=== PATIENT | male | born 1945 | race Caucasian/White ===

== ENCOUNTER → 2016-03-05 | Outpatient (CLI) | payer OTHER ==
[~2016-03-05] MED LIST: CLC100 PO; IBUP-1450 PO; OPTIRAY 320 IV PRN; OXYC5TAB PO; PRAV20TA PO; TAMS0.4C59 PO
--- NOTE | 2016-03-05 12:10 | DIAGNOSTIC IMAGING REPORT ---
CHEST CT WITH CONTRAST CT DOSE: 772.10 mGy.cm HISTORY: Pulmonary nodule X TECHNIQUE: Multiaxial CT images of the chest were performed following the intravenous administration of contrast. COMPARISON: 10/11/2015 FINDINGS: Interval removal of the peripherally located nodular density left midlung. Minimal postprocedural scar formation. No significant residual nodularity. Lungs otherwise clear. There are no new or interval findings of that noted. Mediastinal hilar regions show no significant adenopathy or in some mild atherosclerotic change thoracic aorta with no evidence for aneurysm or dissection. IMPRESSION: 1. Interval resection and/or removal of the nodular density peripheral left lung. 2. Minimal localized postprocedural scarring. 3. Study of the chest is currently negative Electronically signed by: James Reveles M.D. 03/05/2016 12:08 PM
== END | disposition home or self-care (01) ==
LOC: C.CTS 11:20
PROVIDERS: ATTEND Surgery
DX: R91.1 Solitary pulmonary nodule (principal)

== ENCOUNTER → 2016-05-14 | Outpatient (CLI) | payer OTHER ==
[~2016-05-14] VITALS: Ht 182.9 cm; Wt 90.0 kg
[~2016-05-14] MED LIST changes: -OPTIRAY 320 IV PRN
[2016-05-14 14:00] VITALS: BP_SYST 124; BP_SYST 138; BP_DIAS 83; BP_DIAS 94; PULSE 89; PULSE 90; Ht 182.9 cm; Wt 90.0 kg
== END | disposition home or self-care (01) ==
LOC: C.NEUR 13:39
PROVIDERS: ATTEND Internal Medicine Pulmonary Disease
DX: G47.30 Sleep apnea, unspecified (principal)

== ENCOUNTER → 2016-06-29 | Outpatient (CLI) | payer OTHER ==
--- NOTE | 2016-06-30 06:35 | PAP/PSG TECHNICIAN REPORT ---
[facility] Hired Worker Polysomnogram Report Study name: None Report date: 06/30/2016 Study date: 06/29/2016 Referring Physician: Jayme Jarrett Pulmonary Name: PARVEZ FORD Interpreting Physician: Roderick Seaman M.D. Date of : 1945 Hired Worker: Susan Good [facility]. Sex: Male Age: 71 StudyType: PSG Weight: 258 lbs Height: 71 years, Height 6' 0" BMI: 34.99 Medications: Pravastatin 40 mg, Tamsulosin 0.4 mg, Zotavax Patient History 71 yr. old male here for a possible split night sleep study. Patient complains of profound fatigue and restlessness. 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 He will sleep 3-4 hours and then be up for a couple hours. Patients [place] sleepiness scale score is 6/24. Parameters Monitored NPSG: E1-M2, E2-M1, Fp1-M2, Fp2-M1, F3-M2, F4-M2, F4-M1, C3-M2, C4-M2, C4-M1, O1-M2, O2-M2, O2-M1, T3-M2, T4-M1, P3-M2, P4-M1, CHIN1, CHIN2, HR, EKG, Legs, PFLOW, SNOR, FLOW, CFLOW, Tidal Volume, THOR, ABDO, SpO2, PLTH, CPRESS, ETCO2 Wave, ETCO2, pH Sleep Architecture Sleep Stages Time at Lights Off 10:18:28 PM STAGES Time (min.) TST (%) Time at Lights On 6:24:58 AM Wake 235.5 -- Total Recording Time (TRT) 486.50 min. N1 26.0 10 Total Sleep Period (TSP) 388.0 min. N2 152.5 61 Total Sleep Time (TST) 251.0min. N3 22.5 9 Awake Time 235.5 min. REM 50.0 20 Wake after Sleep Onset 137.0 min. Sleep Efficiency (SE) 52 % Sleep Onset Latency (KRISH) 98.5 min. Number of Stage 1 Shifts None Awakenings 18 Stage Changes 83 Number of REM periods 8 REM 50.0 20 REM Latency 97.0 min. NREM 201.0 80 Body Position Analysis Supine Right Left Side Prone Vertical Total Sleep Time (min.) 293.2 161.4 0.0 161.42 0.0 3.1 Total Sleep Time (%) 36% 64% 0% 64 0% N/A% Total Sleep Time REM (min.) 14.1 35.9 0.0 None 0.0 0.0 Total Sleep Time NREM (min.) 75.5 125.5 0.0 None 0.0 0.0 Intermittent Wake (min.) 203.7 19.9 8.8 None 0.0 3.1 Total Sleep Period (%) 54% None None None None None Arousals Myoclonus (PLM) * Events Count Index Events Count Index Spontaneous 18 4 Events Awake (PLMW) 129 32.9 Respiratory 26 6.9 Events Asleep w/ Arousal (PLMA) 15 3.6 PLM 15 4 Events Asleep w/o Arousal (PLMS) 67 16.0 Snoring 20 5 Total Asleep 82 19.6 Total 79 19 Total 211 26 Respiratory Analysis * CA OA MA CH H RERA Total Count 7 6 0 0 78 4 91 Index 1.7 1.4 0.0 0 18.6 1 22.7 Mean Duration 14.6 16.4 0.0 0.00 23.1 23.3 22.1 Longest Duration 18.7 23.3 0.0 0.00 0.0 26.0 117.2 Respiratory Event Summary Total Supine ~Supine Right Left Prone REM NREM Apneas Count 13 12 1 1 N/A N/A 0 13 Index 3.1 8 0 0.4 N/A N/A 0 4 Hypopneas (4% Desat) Count 78 58 20 20 N/A N/A 16 62 Index 18.6 38.8 7 7.4 N/A N/A 19.2 18.5 Apneas & All Hypopneas Count 91 70 21 21 N/A N/A 16 75 Index 21.8 47 8 8 N/A N/A 19.2 22.4 Respiratory Events (Senior Water Resources Engineer+All Hyp+RERA) Count 91 74 21 21 N/A N/A 16 75 Index 22.7 50 8 7.8 N/A N/A 19.2 23.6 Respiratory Related Arousal Count 26 74 2 2 N/A N/A 4 25 Index 6.9 18 1 1 N/A N/A 5 7 Snoring Analysis Supine Right Left Prone REM NREM Total Snore duration 6.1 min Snores count 86 248 N/A N/A 48 286 334 Snore mean duration 1.1 Sec Snores index 58 92 N/A N/A 57.6 85.4 79.8 TST with snoring (%) 2.4% Desaturation Event Summary: Minimum %SpO2 Event Count Mean/Min/Max Duration(sec.) Desaturation Index % Time In Bed > 90 86 26.4 / 12.5 / 56.5 12.0 89.5 86 - 90 5 17.7 / 11.8 / 34.3 6.2 10.1 81 - 85 0 N/A 0.0 0.3 76 - 80 0 N/A 0.0 0.0 71 - 75 0 N/A 0.0 0.0 66 - 70 0 N/A 0.0 0.0 61 - 65 0 N/A 0.0 0.0 56 - 60 0 N/A 0.0 0.0 51 - 55 0 N/A 0.0 0.0 < 50 0 N/A 0.0 0.0 Total REM NREM Awake <50% 0.0 min. 0.0 min. 0.0 min. 0.0 min. 51 - 60% 0.0 min. 0.0 min. 0.0 min. 0.0 min. 61 - 70% 0.0 min. 0.0 min. 0.0 min. 0.0 min. 71 - 80% 0.0 min. 0.0 min. 0.0 min. 0.0 min. 81 - 90% 50.1 min. 25.0 min. 19.3 min. 5.8 min. 91 - 100% 428.8 min. 25.0 min. 181.7 min. 222.2 min. Average 93 91 92 94 Minimum SpO2 84 85 88 84 Desaturation Event Index 10.7 18.0 17.3 4.6 # Desat. Events below 89% 16 7 5 4 Time(%) with Saturation below 89% 2.2 1.2 0.2 0.8 Time(min.) with Saturation below 89% 10.6 5.7 0.8 4.0 Time (mins) REM (mins) NREM (mins) % of TST SpO2 Below 90% 40 14 N26 7.1 SpO2 Below 88% 6 0 0 0 Heart Rate Analysis Min (bpm) Max (bpm) Average (bpm) Awake 39 82 66 NREM 55 78 62 REM 56 70 63 Overall 55 78 62 Supplemental O2 Values Minimum O2 level: None Value Start Time End Time Hired Worker Comments Logan Martin slept in the right, left, and supine positions. Cardiac arrhythmia and PLMs noted. No bruxism noted. Snoring was noted and scored as a 2 on a scale of 0 through 5. (0=no snoring, 5=snoring loud enough to be heard through a closed door or down the camacho way) awoke to use the restroom once during the night. Mr. Ford stated, that was a normal night. The final report will be interpreted and signed by a sleep physician. The completed physician report will then be placed in the patient medical record. Therapy (cm H2O) 0 TIB (min.) 486.5 TST (min.) 251.0 Sleep Onset (min.) 98.5 REM Onset From Sleep (min.) 97.0 Sleep Efficiency % 52 Wakefulness (%) 48 Wakefulness (min.) 235.5 NREM 1 (%) 10 NREM 1 (min.) 26.0 NREM 2 (%) 61 NREM 2 (min.) 152.5 NREM 3 (%) 9 NREM 3 (min.) 22.5 REM (%) 20 REM (min.) 50.0 # Arousals 79 Arousal Index 19 # Snore 334 Snore Index 79.8 AHI 21.8 AHI Supine 47 AHI Non-Supine 8 NREM AHI 22.4 REM AHI 19.2 RDI 22.7 # Obstructive Apnea 6 # Central Apnea 7 # Mixed Apnea 0 # Hypopneas 78 RERAs 4 Total Respiratory Events 104 Time Below SpO2 89% (min.) 6.6 Mean NREM SpO2 (%) 92 Mean REM SpO2 (%) 91 Mean Sleep SpO2 (%) 92 Min NREM SpO2 (%) 88 Min REM SpO2 (%) 85 Position Supine (min.) 293.2 Position Non-supine (min.) 161.4 LM Index Sleep 19.6 LM Index NREM 21.8 LM Index REM 10.8 Mean Heart Rate (bpm) 62 Min Heart Rate (bpm) 55
--- NOTE | 2016-07-01 16:33 | POLYSOMNOGRAPH REPORT ---
CLINICAL DATA: A 71-year-old male with BMI of [address] Jarrett and Dr. Saleh with profound fatigue, restlessness, fragmented sleep and snoring. SLEEP ARCHITECTURE: Total sleep period was 388 minutes. Total sleep time was 251 minutes divided between 201 minutes of non-REM sleep and 50 minutes of REM sleep. Sleep onset latency was delayed at 98.5 minutes. REM latency was 97 minutes. Sleep efficiency was reduced to 52%. Wake after sleep onset was 137 minutes. Sleep consisted of stage N1 10%, N2 61%, N3 9%, REM 20%. AROUSAL DATA: 79 arousals were recorded for an index of 19 per hour. 26 were due to respiratory events. 15 were due to PLMs. PERIODIC LIMB MOVEMENTS DATA: Mildly elevated limb movements during sleep were noted. There were 82 limb movements during sleep noted for an index of 19.6 per hour with arousal index of 3.6 per hour. RESPIRATORY DATA: Moderate sleep apnea was documented. The AHI was 21.8. The RDI was 22.7. There were 7 central and 6 obstructive apneic episodes. The longest duration of apnea was 23.3 seconds. There were 78 hypopneic episodes. The mean duration of hypopnea was 22.1 seconds. There were 4 RERAs. The longest RERA was 26 seconds. OXIMETRY DATA: Mild nocturnal hypoxemia was seen. Oxygen true was 85% during REM. The mean saturation was 93%. Time below 88% was 6 minutes. EKG: Heart ranged from 55-78 beats per minute. PVCs and a very short run of what appeared to be paroxysmal supraventricular tachycardia for 6 beats was noted at 3:48 a.m. CDL A DRIVER'S COMMENTS: The patient slept in the right, left, and supine positions. Snoring was moderate, rated 2 on a scale of 1-5. The patient did not meet split night criteria and did have along period of wakefulness during sleep in the doctor of nursing practice hours. IMPRESSION: Moderate sleep apnea/hypopnea with mild nocturnal hypoxemia. RECOMMENDATIONS: The patient may benefit from a repeat sleep study with CPAP or use of an oral appliance. [facility]
== END | disposition home or self-care (01) ==
LOC: C.NEUR 21:00
PROVIDERS: ATTEND Internal Medicine Pulmonary Disease
DX: G47.30 Sleep apnea, unspecified (principal)

== ENCOUNTER → 2016-07-06 | Outpatient (CLI) | payer OTHER ==
[~2016-07-06] VITALS: Ht 182.9 cm; Wt 116.7 kg
[2016-07-06 14:35] VITALS: BP 121/76; PULSE 75; Ht 182.9 cm; Wt 116.7 kg
== END | disposition home or self-care (01) ==
LOC: C.NEUR 14:15
PROVIDERS: ATTEND Physician Assistant
DX: G47.30 Sleep apnea, unspecified (principal)

== ENCOUNTER → 2016-08-04 | Outpatient (CLI) | payer OTHER ==
[2016-08-04 12:26] LABS: BASO ABS # 0.04 K/uL (0-0.2); COMPLETE YES; EOS % 3.1 %; HEMATOCRIT 45.4 % (42-52); IG% 0.2 %; LYMPH % 35.9 %; LYMPH ABS # 1.51 K/uL (1.2-3.4); MEAN CELL VOLUME 91.7 fL (80-100); MEAN CORPUSCULAR HEMOGLOBIN 31.5 pg (25-34); MEAN CORPUSCULAR HGB CONC 34.4 g/dl (32-36); MEAN PLATELET VOLUME 10.4 fL (7.4-10.4); MONO % 14.7 %; NEUT % 45.1 %; PLATELET COUNT 186 K/uL (130-400); RED BLOOD COUNT 4.95 M/uL (4.7-6.1); WHITE BLOOD COUNT 4.21 K/uL (4.8-10.8)
[2016-08-04 13:38] LABS: BLOOD UREA NITROGEN 16 mg/dl (7-18); BUN/CREATININE RATIO 14.1 (10-20); CARBON DIOXIDE 26 mmol/L (21-32); CHLORIDE 107 mmol/L (98-107); GLUCOSE 85 mg/dl (70-99); MAGNESIUM 2.3 mg/dl (1.8-2.4); POTASSIUM 4.1 mmol/L (3.5-5.1); SODIUM 141 mmol/L (136-145)
== END | disposition home or self-care (01) ==
LOC: C.LAB1850 10:36
PROVIDERS: ATTEND Internal Medicine
DX: R79.9 Abnormal finding of blood chemistry, unspecified (principal); R94.31 Abnormal electrocardiogram [ECG] [EKG]; I49.9 Cardiac arrhythmia, unspecified

== ENCOUNTER → 2016-10-02 | Outpatient (CLI) | payer OTHER ==
[2016-10-02 12:15] LABS: BASO % 0.6 %; BASO ABS # 0.03 K/uL (0-0.2); COMPLETE YES; EOS % 2.9 %; IG% 0.2 %; LYMPH % 37.4 %; LYMPH ABS # 1.91 K/uL (1.2-3.4); MEAN CORPUSCULAR HEMOGLOBIN 31.5 pg (25-34); MEAN CORPUSCULAR HGB CONC 34.3 g/dl (32-36); MEAN PLATELET VOLUME 10.7 fL (7.4-10.4); MONO % 12.5 %; NEUT % 46.4 %; PLATELET COUNT 195 K/uL (130-400); RED BLOOD COUNT 5.11 M/uL (4.7-6.1); WHITE BLOOD COUNT 5.11 K/uL (4.8-10.8)
[2016-10-02 12:52] LABS: ALT/SGPT 33 U/L (12-78); BLOOD UREA NITROGEN 16 mg/dl (7-18); BUN/CREATININE RATIO 13.2 (10-20); CALCIUM 8.9 mg/dl (8.5-10.1); CARBON DIOXIDE 28 mmol/L (21-32); CHLORIDE 109 mmol/L (98-107); CHOLESTEROL 231 mg/dl (0-200); GLUCOSE 99 mg/dl (70-99); POTASSIUM 3.9 mmol/L (3.5-5.1); SODIUM 142 mmol/L (136-145)
[2016-10-02 12:55] LABS: ALB/GLOB RATIO 1.2 (0.9-2); ALKALINE PHOSPHATASE 76 U/L (45-117); AST/SGOT 23 U/L (15-37); CHOLESTEROL/HDL RATIO 4.2; HDL CHOLESTEROL 55 mg/dl; LDL CHOLESTEROL CALCULATED 146 mg/dl; TRIGLYCERIDES 149 mg/dl (0-150); VERY LOW DENSITY LIPOPROT CALC 30 mg/dl
[2016-10-02 14:54] LABS: URINE APPEARANCE CLEAR (CLEAR); URINE BILIRUBIN NEG (NEG); URINE COLOR YELLOW; URINE EPITHELIAL CELL AUTO 0-5 /lpf (0-5); URINE NITRITE NEG (NEG); URINE PH 5.5 (4.5-7.5); URINE SPECIFIC GRAVITY 1.025 (1.000-1.030); UROBILINOGEN NEG (NEG); ZZUR CULT IF INDIC CLEAN CATCH NO
[2016-10-02 14:56] LABS: MANUAL MICROSCOPIC REQUIRED? NO; REVIEW REQ? NO
== END | disposition home or self-care (01) ==
LOC: C.LAB1850 10:34
PROVIDERS: ATTEND Internal Medicine
DX: E78.5 Hyperlipidemia, unspecified (principal); D72.819 Decreased white blood cell count, unspecified

== ENCOUNTER → 2017-02-01 | Outpatient (CLI) | payer OTHER | END | disposition home or self-care (01) | LOC: C.LAB1850 11:45 | PROVIDERS: ATTEND Urology | DX: N40.0 Benign prostatic hyperplasia without lower urinary tract symptoms (principal) ==

== ENCOUNTER 2017-03-08 20:14 | Emergency (ER) | payer OTHER ==
[~2017-03-08] VITALS: Ht 182.9 cm; Wt 123.0 kg
[2017-03-08 20:17] VITALS: TEMP 36.3; Ht 182.9 cm; Wt 123.0 kg
[2017-03-08] MEDS ORDERED: XYLOCAINE 1%/SOD BICARB 20 ML VIAL INFIL ONE (20:45)
--- NOTE | 2017-03-08 20:51 | DIAGNOSTIC IMAGING REPORT ---
CT SCAN OF THE BRAIN WITHOUT IV CONTRAST CLINICAL HISTORY: Fall. Head injury. COMPARISON STUDY: No priors. TECHNIQUE: Unenhanced axial CT scan of the brain is performed from the vertex to the skull base. A dose lowering technique was utilized adhering to the principles of ALARA. CT DOSE: 537.48 mGy.cm FINDINGS: Brain parenchyma: There is mild periventricular microangiopathic disease. There is no hemorrhage, mass effect, or evidence of acute territorial ischemia by CT criteria. Andre-white matter is preserved. No extra-axial fluid collection is seen. Ventricles, sulci, cisterns: Normal in configuration. Intracranial vasculature: There is atherosclerotic calcification of the cavernous carotid and vertebral arteries. Calvarium: There is no depressed calvarial fracture. Soft tissues: There is a right frontal scalp contusion/laceration. Sinuses and mastoids: The visualized paranasal sinuses are clear. The mastoid air cells are well pneumatized. Orbits: The bony orbits are grossly intact. IMPRESSION: 1. No acute intracranial abnormality. 2. Right frontal scalp injury. No depressed calvarial fracture is seen Electronically signed by: Jared Dominguez M.D. 03/08/2017 8:50 PM Dictated Date/Time: 03/08/2017 8:48 PM
[2017-03-08 21:41] VITALS: BP 170/106; PULSE 57; O2SAT 94
--- NOTE | 2017-03-08 21:51 | EMERGENCY ROOM VISIT NOTE ---
History First contact with patient: 20:21 Chief Complaint: LACERATION/CUT (NON-SUTURE) Stated Complaint: CUT ON FOREHEAD Nursing Triage Summary: Pt reports he missed a step and hit a chair. Pt denies any LOC. Pt has laceration to forehead. It happened 7pm. History of Present Illness The patient is a 71 year old male who presents to the Emergency Room with complaints of a forehead laceration after he was walking out of his garage, missed a step and fell, hitting his head on a wooden chair. The patient reports that he turned off the light and discuss that. He denies any loss of consciousness, neck pain or other injuries from his fall. He does complain of a mild frontal headache. The patient believes that his tetanus immunization is up-to-date. He rates his discomfort a 2 out of 10. Review of Systems 10 system review was performed and was negative except for pertinent positives and negatives as indicated in history of present illness Past Medical/Surgical History Medical Problems: (1) Mass of left lung Medical Problems: (1) Cardiomegaly (2) Diaphragmatic Hernia (3) Hyperlipidemia Nec/Nos (4) Lumbago (5) Mass of left lung (6) Umbilical Hernia (7) Unilat Inguinal Hernia Family History Unremarkable Social History Smoking Status: Former Smoker Alcohol Use: occasionally Marital Status: Housing Status: lives alone Occupation Status: retired Current/Historical Medications Scheduled Pravastatin (Pravachol ), 20 MG PO QPM Tamsulosin Hcl (Flomax), 0.4 MG PO QAM Physical Exam Vital Signs Date Time Temp Pulse Resp B/P (MAP) Pulse Ox O2 Delivery O2 Flow Rate FiO2 03/08/17 21:41 57 170/106 94 03/08/17 20:17 36.3 69 20 192/106 97 Room Air Physical Exam CONSTITUTIONAL: Healthy and well nourished. Alert and oriented X 3 with positive affect. GCS 15. Patient does not appear in any acute distress. HEENT: Examination of the right forehead shows a 5.5 cm gaping laceration with mild bleeding. Pupils equal, round and reactive. No tenderness to palpation of the superior orbital rim or other facial bones. No subconjunctival hemorrhage, epistaxis or hemotympanum. No raccoon's eyes or Rivera sign. NECK: Full active range of motion without discomfort. RESPIRATORY: Clear to auscultation bilaterally with no wheezing, crackles, rhonchi or stridor. CARDIOVASCULAR: Regular rate and rhythm with no murmurs, rubs or gallops. MUSCULOSKELETAL: Full range of motion of all joints without discomfort. INTEGUMENTARY: No rash or other significant dermatologic conditions noted. NEUROLOGIC: Cranial nerves II-XII grossly intact. No focal neurologic deficits noted. Medical Decision & Procedures ER Provider Diagnostic Interpretation: Noncontrast CT of the head does not show any acute fractures or intracranial bleed. Radiologist report is as follows: CT SCAN OF THE BRAIN WITHOUT IV CONTRAST CLINICAL HISTORY: Fall. Head injury. COMPARISON STUDY: No priors. TECHNIQUE: Unenhanced axial CT scan of the brain is performed from the vertex to the skull base. A dose lowering technique was utilized adhering to the principles of ALARA. CT DOSE: 537.48 mGy.cm FINDINGS: Brain parenchyma: There is mild periventricular microangiopathic disease. There is no hemorrhage, mass effect, or evidence of acute territorial ischemia by CT criteria. Andre-white matter is preserved. No extra-axial fluid collection is seen. Ventricles, sulci, cisterns: Normal in configuration. Intracranial vasculature: There is atherosclerotic calcification of the cavernous carotid and vertebral arteries. Calvarium: There is no depressed calvarial fracture. Soft tissues: There is a right frontal scalp contusion/laceration. Sinuses and mastoids: The visualized paranasal sinuses are clear. The mastoid air cells are well pneumatized. Orbits: The bony orbits are grossly intact. IMPRESSION: 1. No acute intracranial abnormality. 2. Right frontal scalp injury. No depressed calvarial fracture is seen. Medications Administered Medications (Trade) Dose Ordered Sig/Darrius Route Start Time Stop Time Status Last Admin Dose Admin Lidocaine HCl (Buffered Lidocaine 1% Inj) 20 ml ONE ONCE INFIL 03/08/17 20:45 03/08/17 20:46 DC 03/08/17 20:45 20 ML Procedure Laceration repair was performed under local anesthesia after receiving verbal consent from the patient. Using buffered 1% lidocaine without epinephrine, good local anesthesia was administered. The peripheral tissue was enclosed with iodine, then the wound was pressure irrigated with normal saline. Exploration of the wound does not show any underlying debris. The patient did have mild bleeding/oozing without any focal bleeding blood vessels. The wound was then approximated using 6-0 nylon simple interrupted sutures. A bacitracin pressure dressing was applied to the wound. ED Course Patient history and physical exam were performed. Nurse's notes were reviewed. Vital signs were reviewed, showing a blood pressure 192/106. The patient denied any significant pain. I did recommend a head CT, and the patient was in agreement. Noncontrast CT of the head was normal. Laceration repair was performed under local anesthesia. The patient was provided additional verbal and written wound care instructions. Ice for swelling. Tylenol as needed for pain. Suture removal in 5-7 days, or seek reevaluation sooner for any signs of wound infection. The patient was happy with plan of care, voiced understanding of all discharge instructions, refused any analgesics while in the emergency department, and rated his discomfort a 2 out of 10 at the time of discharge. The case was also discussed with Dr. Vergara, ED attending physician who evaluated the patient and agrees with workup and plan of care. The patient was encouraged to follow-up with his PCP for blood pressure recheck. Medical Decision Medication Reconcilliation Current Medication List: was personally reviewed by me Blood Pressure Screening Patient's blood pressure: Elevated blood pressure Blood pressure disposition: Referred to PCP Impression Primary Impression: Facial laceration Additional Impressions: Closed head injury Elevated blood pressure reading Departure Information Referrals Chirag Saleh M.D. (PCP) Patient Instructions [facility] Problem Qualifiers Primary Impression: Facial laceration Encounter type: initial encounter Qualified Codes: S01.81XA - Laceration without foreign body of other part of head, initial encounter Additional Impressions: Closed head injury Encounter type: initial encounter Qualified Codes: S09.90XA - Unspecified injury of head, initial encounter
== END 2017-03-08 21:43 | disposition home or self-care (01) ==
LOC: C.EDB 20:15 → C.EDD 21:43
DX: S01.81XA Laceration without foreign body of other part of head, initial encounter (principal); W10.9XXA Fall (on) (from) unspecified stairs and steps, initial encounter; Y92.015 Private garage of single-family (private) house as the place of occurrence of the external cause; I51.7 Cardiomegaly; E78.5 Hyperlipidemia, unspecified; R91.8 Other nonspecific abnormal finding of lung field; K40.90 Unilateral inguinal hernia, without obstruction or gangrene, not specified as recurrent; K42.9 Umbilical hernia without obstruction or gangrene; Z87.891 Personal history of nicotine dependence; Z79.899 Other long term (current) drug therapy

== ENCOUNTER → 2017-04-12 | Outpatient (CLI) | payer OTHER ==
[~2017-04-12] MED LIST changes: -CLC100 PO; -IBUP-1450 PO; -OXYC5TAB PO
[2017-04-12 13:01] LABS: BASO % 0.5 %; BASO ABS # 0.03 K/uL (0-0.2); EOS % 2.1 %; EOS ABS # 0.12 K/uL (0-0.5); HEMATOCRIT 46.1 % (42-52); HEMOGLOBIN 16.3 g/dL (14.0-18.0); IG# 0.01 K/uL (0.00-0.02); LYMPH % 35.1 %; LYMPH ABS # 1.96 K/uL (1.2-3.4); MEAN CELL VOLUME 89.7 fL (80-100); MEAN CORPUSCULAR HEMOGLOBIN 31.7 pg (25-34); MEAN CORPUSCULAR HGB CONC 35.4 g/dl (32-36); MEAN PLATELET VOLUME 9.9 fL (7.4-10.4); MONO % 11.1 %; MONO ABS # 0.62 K/uL (0.11-0.59); NEUT ABS # 2.85 K/uL (1.4-6.5); PLATELET COUNT 182 K/uL (130-400); RED CELL DISTRIBUTION WIDTH CV 13.2 % (11.5-14.5); RED CELL DISTRIBUTION WIDTH SD 43.4 fL (36.4-46.3); WHITE BLOOD COUNT 5.59 K/uL (4.8-10.8)
== END | disposition home or self-care (01) ==
LOC: C.LAB1850 11:59
PROVIDERS: ATTEND Internal Medicine
DX: E78.5 Hyperlipidemia, unspecified (principal); D72.819 Decreased white blood cell count, unspecified

== ENCOUNTER → 2017-06-03 | Day surgery (SDC) | payer OTHER ==
[2017-05-21 11:01] VITALS: Ht 182.9 cm; Wt 125.0 kg
[~2017-06-03] VITALS: Ht 182.9 cm; Wt 125.0 kg
[~2017-06-03] MED LIST changes: +LIDOCAINE HCL 2% 2 ML VIAL (20MG/ML) ONE; -PRAV20TA PO; +PRAV80TA2 PO; +PROPOFOL IV EMULSION 10 MG/ML 20 ML VIAL IV ONE; +SODIUM CHLORIDE 0.9% 500ML 500 ML IV ONE; +TAMS0.4C38 PO; -TAMS0.4C59 PO
[2017-06-03 12:08] VITALS: TEMP 36.8
--- NOTE | 2017-06-03 12:45 | Endo History and Physical ---
History & Physical Date of Service: Jun 03, 2017. Chief Complaint: history of polyps Referring Physician: dr guerra History of Present Illness 72 yo CM who presents for colonoscopy secondary to history of colon polyps. Past Surgical History Hx Cardiac Surgery: No Hx Internal Defibrillator: No Hx Pacemaker: No Hx Abdominal Surgery: Yes (HERNIA SURGERY/REPAIR X 4) Hx of Implantable Prosthesis: No Hx Post-Op Nausea and Vomiting: No Hx Cancer Surgery: No Hx Thoracic Surgery: Yes (RT LUNG MASS REMOVED (BACTERIA)) Hx Orthopedic: Yes (MULTIPLE RT HAND SURGERY-VIETNAM INJURY (AMPUTATION FINGER) ) Hx Urinary Tract Surgery: No Family History None Social History Smoking Status: Never Smoker Hx Substance Use: No Hx Alcohol Use: Yes (RARELY) Allergies Coded Allergies: No Known Allergies (Unverified , 06/03/17) Current Medications Reported Home Medications Medications Dose Route/Sig Max Daily Dose Days Date Category Flomax (Tamsulosin Hcl) 0.4 Mg Cap 0.4 Mg PO QAM 05/21/17 Reported Pravastatin Sodium 80 Mg Tab 1 Tab PO HS 90 05/21/17 Reported Vital Signs Weight (Kilograms): 125 Height (Feet): 6 Height (Inches): 0 Date Time Temp Pulse Resp B/P (MAP) Pulse Ox O2 Delivery O2 Flow Rate FiO2 06/03/17 12:08 36.8 66 18 140/83 (102) 96 Room Air Physical Exam General Appearance: WD/WN, no apparent distress Respiratory/Chest: Auscultation: breath sounds normal Cardiovascular: Heart Auscultation: RRR Abdomen: Bowel Sounds: normal Inspection & Palpation: soft, non-distended, no tenderness, guarding & rebound Assessment and Plan Assessment: 72 yo CM who presents for colonoscopy secondary to history of colon polyps. Plan: Proceed with colonoscopy.
--- NOTE | 2017-06-03 13:10 | Discharge Instructions ---
Endoscopy Patient Instructions Date / Procedure(s) Performed Jun 03, 2017. Colonoscopy Allergy Information Coded Allergies: No Known Allergies (Unverified , 06/03/17) Discharge Date / Findings Jun 03, 2017. Colon polyp Internal hemorrhoids Medication Instructions OK to resume all medications today as prescribed Reported Home Medications Medications Dose Route/Sig Max Daily Dose Days Date Category Flomax (Tamsulosin Hcl) 0.4 Mg Cap 0.4 Mg PO QAM 05/21/17 Reported Pravastatin Sodium 80 Mg Tab 1 Tab PO HS 90 05/21/17 Reported Provider Instructions Activity Restrictions - No exercising or heavy lifting for 24 hours. - Do not drink alcohol the day of the procedure. - Do not drive a car or operate machinery until the day after the procedure. - Do not make any important decisions or sign important papers in 24 hours after the procedure. Following Day: - Return to full activity which may include returning to work/school. Diet Start your diet with liquids and light foods (jello, soup, juice, toast). Then eat your usual diet if not nauseated. Treatment For Common After Affects For mild abdominal pain, bloating, or excessive gas: - Rest - Eat lightly - Lie on right side Follow-Up Information Follow-up with dr guerra as scheduled Anesthesia Information What You Should Know You have had a procedure that required some medicine to reduce anxiety and discomfort. This treatment is called moderate sedation. After receiving the treatment, you may be sleepy, but you will be able to breathe on your own. The effects of the treatment may last for several hours. Follow these instructions along with Activity/Diet recommendations noted above: * Do NOT do anything where dizziness or clumsiness would be dangerous. * Rest quietly at home today, then you can be up and about tomorrow. * Have a responsible person stay with you the rest of today. * You may have had an I.V. today. If so, you may take the dressing off later today. Recommendations Call your doctor if: * Trouble breathing * Continuous vomiting for more than 24 hours * Temperature above 101 degrees * Severe abdominal pain or bloating * Pain not relieved by pain medicine ordered * There is increased drainage or redness from any incision * A large amount of rectal bleeding greater than 2-3 tablespoons. (If you had a polyp/s removed or have hemorrhoids, a small amount of blood - from the rectum is to be expected.) * You have any unanswered questions or concerns. IN THE EVENT OF A SERIOUS EMERGENCY, GO TO THE NEAREST EMERGENCY ROOM Your discharge instructions were prepared by provider Thomas Tompkins. Patient Instructions Signature Page Jared Ford Patient (or Guardian) Signature/Date: I have read and understand the instructions given to me by my caregivers. Caregiver/RN/Doctor Signature/Date: The above-named patient and/or guardian has received patient instructions on this date. + Original Patient Signature Page (only) stays with chart. Please make copy for patient.
--- NOTE | 2017-06-03 13:28 | GI REPORT ---
Procedure Date: 06/03/2017 11:57 AM THIS REPORT HAS BEEN AMENDED Addendum Number: 1 Addendum Date: 06/03/2017 1:27:53 PM Patient does not take aspirin therapy, and did not take it 2 days prior to this procedure. Procedure: Colonoscopy Indications: High risk colon cancer surveillance: Personal history of colonic polyps Medicines: Monitored Anesthesia Care Complications: No immediate complications. Estimated Blood Loss: Estimated blood loss: none. Procedure: Pre-Anesthesia Assessment: - Prior to the procedure, a History and Physical was performed, and patient medications and allergies were reviewed. The patient's tolerance of previous anesthesia was also reviewed. The risks and benefits of the procedure and the sedation options and risks were discussed with the patient. All questions were answered, and informed consent was obtained. Prior Anticoagulants: The patient has taken aspirin, last dose was 2 days prior to procedure. ASA Grade Assessment: II - A patient with mild systemic disease. After reviewing the risks and benefits, the patient was deemed in satisfactory condition to undergo the procedure. After I obtained informed consent, the scope was passed under direct vision. Throughout the procedure, the patient's blood pressure, pulse, and oxygen saturations were monitored continuously. The scope was introduced through the anus and advanced to the terminal ileum. The colonoscopy was performed without difficulty. The patient tolerated the procedure well. The quality of the bowel preparation was good. The terminal ileum, ileocecal valve, appendiceal orifice, and rectum were photographed. Findings: The perianal and digital rectal examinations were normal. A 6 mm polyp was found in the ascending colon. The polyp was flat. The polyp was removed with a hot snare. Resection and retrieval were complete. Non-bleeding internal hemorrhoids were found during retroflexion. The hemorrhoids were small. Impression: - One 6 mm polyp in the ascending colon, removed with a hot snare. Resected and retrieved. - Non-bleeding internal hemorrhoids. Recommendation: - Resume previous diet. - Continue present medications. - Repeat colonoscopy for surveillance based on pathology results. - Return to primary care physician as previously scheduled. Thomas MarleneIrineo TurnerDO 06/03/2017 1:27:32 PM This report has been signed electronically. Note Initiated On: 06/03/2017 11:57 AM I attest to the content of the Intraoperative Record and orders documented therein, exceptions below Thomas Tompkins DO 06/03/2017 1:28:27 PM This report has been signed electronically.
--- NOTE | 2017-06-03 13:29 | Anesthesiology Progress Note ---
Anesthesia Post Op Note Date & Time Jun 03, 2017 at 13:29 Vital Signs Pain Intensity: 0 Vital Signs Past 12 Hours Date Time Temp Pulse Resp B/P (MAP) Pulse Ox O2 Delivery O2 Flow Rate FiO2 06/03/17 13:22 63 18 126/83 (97) 94 Room Air 06/03/17 13:18 66 18 143/96 (112) 94 Room Air 06/03/17 12:08 36.8 66 18 140/83 (102) 96 Room Air Notes Mental Status: alert / awake / arousable, participated in evaluation Pt Amnestic to Procedure: Yes Nausea / Vomiting: adequately controlled Pain: adequately controlled Airway Patency, RR, SpO2: stable & adequate BP & HR: stable & adequate Hydration State: stable & adequate Anesthetic Complications: no major complications apparent
[2017-06-03 13:50] VITALS: BP 128/85; PULSE 67; O2SAT 98
== END | disposition home or self-care (01) ==
LOC: C.GI 11:49
PROVIDERS: ATTEND Internal Medicine
DX: Z12.11 Encounter for screening for malignant neoplasm of colon (principal); D12.2 Benign neoplasm of ascending colon; K64.8 Other hemorrhoids; N40.0 Benign prostatic hyperplasia without lower urinary tract symptoms; Z86.010 Personal history of colon polyps; G47.33 Obstructive sleep apnea (adult) (pediatric); Z79.899 Other long term (current) drug therapy; Z98.890 Other specified postprocedural states

== ENCOUNTER → 2017-10-19 | Outpatient (CLI) | payer OTHER ==
[~2017-10-19] MED LIST changes: -LIDOCAINE HCL 2% 2 ML VIAL (20MG/ML) ONE; -PROPOFOL IV EMULSION 10 MG/ML 20 ML VIAL IV ONE; -SODIUM CHLORIDE 0.9% 500ML 500 ML IV ONE
[2017-10-19 12:09] LABS: BASO % 0.6 %; BASO ABS # 0.03 K/uL (0-0.2); EOS % 1.7 %; EOS ABS # 0.08 K/uL (0-0.5); HEMATOCRIT 47.6 % (42-52); HEMOGLOBIN 16.3 g/dL (14.0-18.0); IG# 0.01 K/uL (0.00-0.02); LYMPH % 42.5 %; LYMPH ABS # 1.98 K/uL (1.2-3.4); MEAN CELL VOLUME 89.8 fL (80-100); MEAN CORPUSCULAR HEMOGLOBIN 30.8 pg (25-34); MEAN CORPUSCULAR HGB CONC 34.2 g/dl (32-36); MEAN PLATELET VOLUME 10.6 fL (7.4-10.4); MONO % 12.9 %; NEUT % 42.1 %; NEUT ABS # 1.96 K/uL (1.4-6.5); PLATELET COUNT 191 K/uL (130-400); RED CELL DISTRIBUTION WIDTH CV 13.1 % (11.5-14.5); RED CELL DISTRIBUTION WIDTH SD 42.8 fL (36.4-46.3); WHITE BLOOD COUNT 4.66 K/uL (4.8-10.8)
== END | disposition home or self-care (01) ==
LOC: C.LAB1850 11:22
PROVIDERS: ATTEND Internal Medicine
DX: E78.5 Hyperlipidemia, unspecified (principal); R79.9 Abnormal finding of blood chemistry, unspecified; R73.9 Hyperglycemia, unspecified; D72.819 Decreased white blood cell count, unspecified; R53.83 Other fatigue

== ENCOUNTER 2024-07-17 11:46 | Observation (INO) ==
[2024-07-17 12:37] LABS: Basophils # (auto) 0.07 K/uL (0.00-0.20); Eosinophils # (auto) 0.05 K/uL (0.00-0.50); Eosinophils % (auto) 0.7 %; Hematocrit (blood only) 49.8 % (42.0-52.0); Hemoglobin 17.5 g/dl (14.0-18.0); Immature Granulocytes # (auto) 0.01 K/uL (0.01-0.20); Immature Granulocytes % (auto) 0.1 %; Lymphocytes % (auto) 26.3 %; Mean Corpuscular Hemoglobin 31.3 pg (25.0-34.0); Mean Corpuscular Hgb Conc 35.1 g/dL (32.0-36.0); Mean Corpuscular Volume 89.1 fL (80.0-100.0); Mean Platelet Volume 10.9 fL (9.4-12.4); Monocytes # (auto) 0.62 K/uL (0.11-0.59); Monocytes % (auto) 9.1 %; Neutrophils % (auto) 62.8 %; Platelet Count 192 K/uL (130-400); RDW Coefficient of Variation 12.7 % (11.5-14.5); RDW Standard Deviation 41.5 fL (36.4-46.3); Red Blood Count 5.59 M/uL (4.70-6.10); White Blood Count 6.85 K/ul (4.8-10.8)
[2024-07-17 12:46] LABS: INR 0.9 (0.9-1.1); Partial Thromboplastin Time 27 Seconds (21-31); Prothrombin Time 10.3 Seconds (9.0-12.0)
[2024-07-17 13:01] LABS: Albumin Globulin Ratio 1.7 (0.9-2); Albumin Level 4.8 gm/dl (3.4-5.0); BUN Creatinine Ratio 9.5 (10-20); Bilirubin,Total 0.7 mg/dl (0.2-1.0); Calcium 9.5 mg/dl (8.6-10.3); Creatinine Clr Calc Pharmacy 64.6 ml/min; Globulin 2.8 gm/dl (2.5-4.0); Magnesium 2.3 mg/dl (1.7-2.4); Potassium 4.2 mmol/L (3.5-5.1); Total Protein 7.6 gm/dl (6.0-8.3)
[2024-07-17 13:07] LABS: Troponin I High Sensitivity 4.7 pg/ml (0-20)
--- NOTE | 2024-07-17 13:11 | Emergency Department Note ---
Impression & Plan Weakness of left lower extremity, Chest pain, Left groin pain ED Provider Note Provider: Maxx Ma MD CHIEF COMPLAINT: Left leg not working well, left chest pain last Wednesday through Wednesday. HISTORY OF PRESENT ILLNESS: Patient is a 79-year-old gentleman past medical history including obesity, restrictive lung disease, BPH, PTSD, and sleep apnea presenting here stating last Wednesday he noted some left-sided chest discomfort with some pain rating to the left arm and into the leg that lasted from Wednesday through this past Wednesday. Denies falls or trauma. States more yesterday he noted that his left leg did not seem to be working well and was having trouble getting around. Denies falling. States his left groin is a bit sore. History of back surgery in the past but denies any numbness in lower extremities or in the upper extremities. Left arm is working well and has some chronic disability from prior war injury to his right arm but otherwise working at baseline. Denies chest pain now but states yesterday had a little bit of sharp chest pain on the right chest that is more or less gone now. Denies any other abdominal pain or nausea or vomiting. PAST MEDICAL HISTORY: As noted above MEDICATIONS: Reviewed home medication SOCIAL HISTORY: Lives at home by himself PHYSICAL EXAM: GENERAL: alert and oriented in no acute distress on stretcher Head: normocephalic and atraumatic EYES: No injection, discharge or icterus. PERRL, EOMI. NECK: Trachea midline. Supple. ENT: Mucous membranes pink and moist. LUNGS: Airway patent. No retractions. Breath sounds clear with good air entry bilaterally. HEART: Regular rate and rhythm. No chest wall tenderness ABDOMEN: Soft with maybe some very slight left lower quadrant tenderness to the inguinal region. No masses appreciable. No flank tenderness. SKIN: Acyanotic, warm, dry, without rashes EXTREMITIES: Without swelling, tenderness or deformity with minimal discomfort in the hip with range of motion of the left lower extremity. NEUROLOGICAL: No aphasia. No facial droop or slurred speech. Diminished strength with straight leg raise in the left lower extremity but intact plantar and dorsiflexion here. Sensation to gross touch normal. EK beats per minute. Normal sinus rhythm. No PVC or PAC. No acute ST segment elevation or depression with QTc 422. CONTINUOUS CARDIAC MONITORING: was ordered and showed a heart rate of 60s to 70s bpm in normal sinus rhythm Patient's laboratory studies and imaging reviewed. Differential includes Infection, dehydration, metabolic abnormality, hypo/hyperglycemia, electrolyte disturbance, anemia, hypoxia, cardiac sources, intracerebral event, toxicologic, neurologic, as well as other pathologies. IMPRESSION/MEDICAL DECISION MAKING: Patient with several different complaints. 7 days of chest discomfort that is now resolved. EKG and troponin sent but seems less likely to be acute ACS. No significant respiratory symptoms reported. I doubt this represents PE or dissection. Troponin and EKG are reassuring. Benign abdomen although reports a little left groin discomfort. CT obtained here without significant acute findings. Does have some weakness to the left leg seems to be more than just related to discomfort in the left groin. Since he can intact. No trauma. Does not appear septic and vitals reassuring. Outside the timeframe for thrombolytics as symptoms started before 24 hours ago. Blood work without anemia leukocytosis. No anemia. No signs of renal dysfunction. Normal troponin. Normal LFTs. CTs of the head as well as angiograms without acute findings per radiology. Patient does later report increased pain in his left leg proximally near the groin. Toradol ordered with good improvement of pain. Do question possible stroke with lower suspicion at this time for primary lumbar spine pathology such as cauda equina or abscess. Patient is having significant dysfunction ambulatory dysfunction even on reassessment after some Toradol. Does not seem that pain limited his strength here although cannot entirely exclude it could be musculoskeletal. Discussed with him these findings. Long discussion and shared decision making of possible further observation MRI evaluation and PT versus going home with outpatient follow-up, patient wished to stay for further care and evaluation. Hospitalist team was consulted. DIAGNOSIS: Left lower extremity weakness, ambulatory dysfunction, atypical chest pain DISPOSITION: Hospitalist will evaluate Patient was agreeable with this plan. Past Med/Surg History Problem List (Updated 07/17/24 @ 18:38 by Maxx Ma M.D.) Left groin pain (Acute) Chest pain (Acute) Weakness of left lower extremity (Acute) Morbid obesity Exertional shortness of breath Restrictive lung disease Prediabetes Recurrent left inguinal hernia Mass of left lung Vasomotor rhinitis (Acute) HX Umbilical hernia (Acute) Tinnitus (Acute) ONGOING Rosacea (Acute) Right inguinal hernia (Acute) Prostate nodule (Acute) HX Hyperlipidemia (Chronic) Urinary incontinence (Chronic) Inguinal hernia (Acute) Benign prostatic hyperplasia with urinary obstruction and other lower urinary tract symptoms (Acute) Obesity Edema Metabolic syndrome Severe obstructive sleep apnea Complex sleep apnea syndrome Post traumatic stress disorder (PTSD) History of colon polyps Medical History Tubular adenoma of colon HX Hypertension HX Sleep apnea BIPAP-NO CURRENT DEVICE IT WAS RECALLED, WAITING ON NEW ONE FOR 2 YEARS Hyperlipidemia Surgical History Status post laparoscopic hernia repair (05/29/13) Laparoscopic right inguinal hernia repair 05/29/13 Dr. Connell History of surgery FOR WOUNDS ENDURED DURING [place] History of inguinal hernia repair X3, "CAN'T REMEMBER WHICH SIDE" Left inguinal hernia repair with mesh 01/02/02 Dr. Connell Per note had a recurrence and was repaired at [place] Laparoscopically History of bronchoscopy History of colonoscopy Family History Mother Bipolar disorder Diabetes Stroke Schizophrenia Brother AIDS (acquired immune deficiency syndrome) Pure hypercholesterolemia Father Myocardial infarction Family/Other Heart disease Denies family history of Ovarian cancer Prostate cancer Coronary heart disease Breast cancer Colorectal cancer Social History Smoking Status: Never smoker Age Quit Using Tobacco: 21; Second Hand Exposure: Yes (HX- CHILD); Do You Dip or Chew Tobacco: No; Hx Alcohol Use: Yes Alcohol Intake Frequency: Monthly or Less Hx Substance Use: No Preferred Language: Mexican Communication Ability: Effective Hearing Ability: Hard of Hearing Tip Length Checker Required: No Beliefs That Will Affect Care: None marital status: / Current Living Situation: Alone current occupational status: retired current occupation: [employer]. How many Children do You have: 1 Feels Safe at Home: Yes Childhood Exposure to Second-Hand Smoke: Yes Diet: regular Diet Comment: low calorie < 1800 caffeine: Yes during the past year weight has: increased > 10 lbs Dental Care, Regularly: Yes Physical Activity Frequency: Other Physical Activity Frequency Comment: weather permitting Seatbelt Use: always Sunscreen Use: No Assistive Devices: Hearing Aid - Bilateral Allergies Allergies Allergy/AdvReac Type Severity Reaction Status Date / Time melatonin AdvReac Severe feeling of Verified 07/17/24 15:26 bursting into flames Home Meds Home Medications Medication Instructions Recorded Confirmed clotrimazole 1 % topical cream 1 applic topical DIRECTED PRN 03/11/23 07/17/24 NEEDED ONLY fluticasone propionate 50 2 spray intranasal DAILY PRN Nasal 07/17/24 07/17/24 mcg/actuation nasal Congestion spray,suspension inositol-choline [id number] 1 tab PO .1-2 X DAILY 07/17/24 07/17/24 B complex and C 500 mg tablet (Lipo-Flavonoid) tirzepatide (weight loss) 2.5 2.5 mg subcut WK 07/17/24 07/17/24 mg/0.5 mL subcutaneous pen injector (Zepbound) Previous Rx's Medication Instructions Recorded BiPap Machine #1 ea 05/21/20 metformin 500 mg tablet,extended 500 mg PO BID #180 tabs 07/14/23 release 24 hr rosuvastatin 20 mg tablet 20 mg PO HS #90 tabs 07/14/23 topiramate 25 mg tablet 25 mg PO DAILY #90 tabs 07/14/23 mecobalamin (vitamin B12) 1,000 1,000 mcg PO DAILY #30 ea 07/19/23 mcg lozenges albuterol sulfate 90 mcg/actuation 2 puff inhalation Q6H PRN 11/18/23 aerosol inhaler (Ventolin HFA) shortness of breath or wheezing #8.5 grams cetirizine 10 mg tablet 10 mg PO DAILY PRN allergy 11/18/23 symptoms #30 tabs tamsulosin 0.4 mg capsule 0.4 mg PO DAILY #90 caps 11/18/23 hydrochlorothiazide 12.5 mg tablet 12.5 mg PO QAM #90 tabs 06/06/24 Results & Data (ED) Vital Signs Vital Signs - 24 hr 07/17/24 11:53 07/17/24 12:05 07/17/24 12:11 Temperature 36.5 C Temperature Source Temporal Artery Scan Pulse Rate 79 74 Pulse Rate [Radial] Pulse Rate from SpO2 Sensor Pulse Rhythm [Radial] Pulse Strength [Radial] Respiratory Rate 20 Respiratory Effort / Characteristics Non-Labored Spontaneous Non-Labored Spontaneous Respiratory Depth Normal Normal Respiratory Pattern Blood Pressure 123/87 Blood Pressure [Right Arm] Blood Pressure Mean 99 Blood Pressure Mean [Right Arm] Blood Pressure Position [Right Arm] Pulse Oximetry 99 Oxygen Delivery Method Room Air Room Air Sepsis Recent Fever Within 48 Hours No Sepsis New/Unexplained Change in Mental Status N/A Sepsis Action Taken by Nursing No Action Required 07/17/24 12:30 07/17/24 12:34 07/17/24 13:00 Temperature Temperature Source Pulse Rate 75 65 Pulse Rate [Radial] 72 Pulse Rate from SpO2 Sensor 73 65 Pulse Rhythm [Radial] Regular Pulse Strength [Radial] Respiratory Rate 20 16 19 Respiratory Effort / Characteristics Non-Labored Respiratory Depth Normal Respiratory Pattern Regular Blood Pressure 140/93 133/83 Blood Pressure [Right Arm] 140/93 Blood Pressure Mean 108 90 Blood Pressure Mean [Right Arm] 108 Blood Pressure Position [Right Arm] Pulse Oximetry 97 97 96 Oxygen Delivery Method Room Air Sepsis Recent Fever Within 48 Hours Sepsis New/Unexplained Change in Mental Status Sepsis Action Taken by Nursing 07/17/24 14:06 07/17/24 16:00 07/17/24 16:25 Temperature Temperature Source Pulse Rate 63 58 L Pulse Rate [Radial] 61 Pulse Rate from SpO2 Sensor 62 Pulse Rhythm [Radial] Regular Pulse Strength [Radial] Normal Respiratory Rate 16 19 Respiratory Effort / Characteristics Non-Labored Respiratory Depth Normal Respiratory Pattern Regular Blood Pressure 124/85 Blood Pressure [Right Arm] 141/90 H Blood Pressure Mean 98 Blood Pressure Mean [Right Arm] 107 Blood Pressure Position [Right Arm] Lying Pulse Oximetry 98 100 Oxygen Delivery Method Room Air Room Air Sepsis Recent Fever Within 48 Hours Sepsis New/Unexplained Change in Mental Status Sepsis Action Taken by Nursing 07/17/24 18:00 Temperature Temperature Source Pulse Rate Pulse Rate [Radial] 60 Pulse Rate from SpO2 Sensor Pulse Rhythm [Radial] Regular Pulse Strength [Radial] Normal Respiratory Rate 18 Respiratory Effort / Characteristics Non-Labored Respiratory Depth Normal Respiratory Pattern Regular Blood Pressure Blood Pressure [Right Arm] 139/85 Blood Pressure Mean Blood Pressure Mean [Right Arm] 103 Blood Pressure Position [Right Arm] Lying Pulse Oximetry 95 Oxygen Delivery Method Room Air Sepsis Recent Fever Within 48 Hours Sepsis New/Unexplained Change in Mental Status Sepsis Action Taken by Nursing Laboratory Data 07/17/24 12:10 07/17/24 12:10 Lab Results 07/17/24 07/17/24 07/17/24 Range/Units 12:10 12:24 Unknown WBC 6.85 (4.8-10.8) K/ul RBC 5.59 (4.70-6.10) M/uL Hgb 17.5 (14.0-18.0) g/dl Hct 49.8 (42.0-52.0) % MCV 89.1 (80.0-100.0) fL MCH 31.3 (25.0-34.0) pg MCHC 35.1 (32.0-36.0) g/dL RDW Std Deviation 41.5 (36.4-46.3) fL RDW Coeff of [place] 12.7 (11.5-14.5) % Plt Count 192 (130-400) K/uL MPV 10.9 (9.4-12.4) fL Immature Gran % (Auto) 0.1 % Neut % (Auto) 62.8 % Lymph % (Auto) 26.3 % [place] % (Auto) 9.1 % Eos % (Auto) 0.7 % Baso % (Auto) 1.0 % Neut # (Auto) 4.30 (1.40-6.50) K/uL Lymph # (Auto) 1.80 (1.20-3.40) K/uL [place] # (Auto) 0.62 H (0.11-0.59) K/uL Eos # (Auto) 0.05 (0.00-0.50) K/uL Baso # (Auto) 0.07 (0.00-0.20) K/uL Immature Gran # (Auto) 0.01 (0.01-0.20) K/uL PT 10.3 (9.0-12.0) Seconds INR 0.9 (0.9-1.1) APTT 27 (21-31) Seconds PTT Ratio 1.0 Sodium 138 (136-145) mmol/L Potassium 4.2 (3.5-5.1) mmol/L Chloride 105 (98-107) mmol/L Carbon Dioxide 24 (21-32) mmol/L Anion Gap 9 (3-11) BUN 12 (6-23) mg/dl Creatinine 1.26 (0.6-1.4) mg/dl Est Cr Clr Drug Dosing 64.6 ml/min eGFR 58.74 BUN/Creatinine Ratio 9.5 L (10-20) Glucose 99 (70-99(Fasting)) mg/dl POC Glucose 103 H (70-99) mg/dl Calcium 9.5 (8.6-10.3) mg/dl Magnesium 2.3 (1.7-2.4) mg/dl Total Bilirubin 0.7 (0.2-1.0) mg/dl AST 18 (13-39) U/L ALT 16 (7-52) U/L Alkaline Phosphatase 69 (34-104) U/L Troponin I High Sens 4.7 (0-20) pg/ml Total Protein 7.6 (6.0-8.3) gm/dl Albumin 4.8 (3.4-5.0) gm/dl Globulin 2.8 (2.5-4.0) gm/dl Albumin/Globulin Ratio 1.7 (0.9-2) Urine Color Yellow Urine Appearance Clear (Clear) Urine pH 6.0 (4.5-7.5) Ur Specific [place] 1.010 (1.000-1.030) Urine Protein Negative (Negative) Urine Glucose (UA) Negative (Negative) Urine Ketones Negative (Negative) Urine Blood Negative (Negative) Urine Nitrite Negative (Negative) Urine Bilirubin Negative (Negative) Urine Urobilinogen Negative (Negative) Ur Leukocyte Esterase Negative (Negative) Urine Comment Administered Medications Discontinued Medications Ioversol (Optiray 320 125ml) 112 ml IV ONCE ONE Stop: 07/17/24 13:20 Last Admin: 07/17/24 13:19 Dose: 112 ml Documented By: BRUCE Ketorolac Tromethamine (Ketorolac Tromethamine 15 Mg/Ml Vial) 10 mg IV NOW ONE Stop: 07/17/24 14:08 Last Admin: 07/17/24 14:12 Dose: 10 mg Documented By: BETTE Imaging Data Radiologist's Impression: Abdomen/Pelvis CT 07/17/24 12:15 CT SCAN OF THE ABDOMEN AND PELVIS WITH IV CONTRAST CLINICAL HISTORY: Abdominal pain. COMPARISON STUDY: CT of the abdomen and pelvis June 10, 2011. PET/CT November 13, 2015. TECHNIQUE: Following the IV administration of 112 cc of Optiray 320, CT scan of the abdomen and pelvis is performed from the lung bases to the proximal femora. Images are reviewed in the axial, sagittal, and coronal planes. IV contrast was administered without complication. A dose lowering technique was utilized adhering to the principles of ALARA. CT DOSE: 2916.75 mGy.cm FINDINGS: Visualized lung bases are unremarkable. The heart is mildly enlarged. There is no pneumatosis, free air or portal venous gas. Inferior right hepatic lobe enhancing lesions have decreased in size since prior exam. These favor hemangiomas. A few additional smaller hepatic lesions are similar to prior exam. Spleen, adrenal glands and pancreas are unremarkable. There is no biliary or pancreatic ductal dilatation. There is no hydronephrosis. Intermediate attenuation left renal lesion is similar to prior PET/CT. This favors a proteinaceous cyst. 3.1 cm infrarenal abdominal aortic aneurysm is present. Caliber and wall thickness of small and large bowel are normal. There is no evidence for a bowel obstruction. Prostate is enlarged, measuring 6.4 cm in transverse diameter. There are no urinary calculi. No acute fractures are identified within the visualized skeletal structures. IMPRESSION: 1. No acute process within the abdomen or pelvis. 2. No bowel obstruction. No bowel wall thickening. 3. Enlarged prostate. No hydronephrosis. No urinary calculi. 4. 3.1 cm infrarenal abdominal aortic aneurysm. ACT 112: Negative or not required by law. Electronically signed by: Miles Diehl M.D. 07/17/2024 1:[address] 07/17/24 12:15 CT angio head w con, CT head/brain wo con CLINICAL HISTORY: 79 years-old Male with neuro deficit, acute stroke suspected. Acute stroke like symptoms COMPARISON STUDY: CTA neck of same day, head CT 03/08/2017. TECHNIQUE: Unenhanced axial CT scan of the brain is performed. Subsequently, following the IV administration of 112 cc of Optiray, CT angiogram of the brain was performed from the skull base to the vertex. Images are reviewed in the axial, sagittal, and coronal planes. 3-D MIPS images are created and assessed. IV contrast was administered without complication. All measurements were obtained according to NASCET criteria. A dose lowering technique was utilized adhering to the principles of ALARA. FINDINGS: CT BRAIN: There is no acute intracranial hemorrhage, midline shift, hydrocephalus, intracranial mass, territorial ischemia or abnormal extra-axial collections. No abnormal intra-axial or extra-axial enhancement. Involutional changes with white matter hypodensities suggestive of chronic microvascular ischemic disease, progressed from prior. Chronic appearing left basal ganglia lacunar infarcts. Study is mildly motion degraded. Mastoid air cells and middle ear cavities are clear. No calvarial fracture. Paranasal sinuses are clear. Right forehead contusion versus scarring. CT ANGIOGRAM OF THE BRAIN: The imaged bilateral internal carotid arteries are patent. The bilateral anterior and middle cerebral arteries are also patent. The vertebrobasilar system and posterior cerebral arteries are patent. There is mild multifocal stenoses of the posterior cerebral arteries. There is no aneurysm, high-grade stenosis, or proximal branch occlusion identified. Dural sinuses appear patent. IMPRESSION: 1. No acute intracranial abnormality or calvarial fracture. 2. Unremarkable CTA of the head. ACT 112: Negative or not required by law. The above report was generated using voice recognition software. It may contain grammatical, syntax or spelling errors. Electronically signed by: Toribio Piedra M.D. 07/17/2024 1:50 PM Head CTA 07/17/24 12:15 CT angio head w con, CT head/brain wo con CLINICAL HISTORY: 79 years-old Male with neuro deficit, acute stroke suspected. Acute stroke like symptoms COMPARISON STUDY: CTA neck of same day, head CT 03/08/2017. TECHNIQUE: Unenhanced axial CT scan of the brain is performed. Subsequently, following the IV administration of 112 cc of Optiray, CT angiogram of the brain was performed from the skull base to the vertex. Images are reviewed in the axial, sagittal, and coronal planes. 3-D MIPS images are created and assessed. IV contrast was administered without complication. All measurements were obtained according to NASCET criteria. A dose lowering technique was utilized adhering to the principles of ALARA. FINDINGS: CT BRAIN: There is no acute intracranial hemorrhage, midline shift, hydrocephalus, intracranial mass, territorial ischemia or abnormal extra-axial collections. No abnormal intra-axial or extra-axial enhancement. Involutional changes with white matter hypodensities suggestive of chronic microvascular ischemic disease, progressed from prior. Chronic appearing left basal ganglia lacunar infarcts. Study is mildly motion degraded. Mastoid air cells and middle ear cavities are clear. No calvarial fracture. Paranasal sinuses are clear. Right forehead contusion versus scarring. CT ANGIOGRAM OF THE BRAIN: The imaged bilateral internal carotid arteries are patent. The bilateral anterior and middle cerebral arteries are also patent. The vertebrobasilar system and posterior cerebral arteries are patent. There is mild multifocal stenoses of the posterior cerebral arteries. There is no aneurysm, high-grade stenosis, or proximal branch occlusion identified. Dural sinuses appear patent. IMPRESSION: 1. No acute intracranial abnormality or calvarial fracture. 2. Unremarkable CTA of the head. ACT 112: Negative or not required by law. The above report was generated using voice recognition software. It may contain grammatical, syntax or spelling errors. Electronically signed by: Toribio Piedra M.D. 07/17/2024 1:50 PM Neck CTA 07/17/24 12:15 CT angio neck with con CLINICAL HISTORY: neuro deficit, acute stroke suspected. COMPARISON STUDY: Head CT earlier today TECHNIQUE: Following the IV administration of 112 of Optiray, CT angiogram of the neck was performed from the aortic arch to the skull base. Images are reviewed in the axial, sagittal, and coronal planes. 3-D MIPS images are created and assessed. IV contrast was administered without complication. All measurements were calculated based on NASCET criteria. A dose lowering technique was utilized adhering to the principles of ALARA. FINDINGS: [place] and motion artifact obscures the proximal left common carotid artery. The right vertebral artery is dominant and the left vertebral artery is diminutive beyond PICA, anatomic variant. There are mild carotid bulb calcifications. No significant narrowing or occlusion seen at the common or internal carotid or the vertebral arteries bilaterally. There is diffuse degenerative disc disease at the cervical spine. IMPRESSION: No significant arterial narrowing seen at the neck. ACT 112: Negative or not required by law. The above report was generated using voice recognition software. It may contain grammatical, syntax or spelling errors. Electronically signed by: Thierno Lyons M.D. 07/17/2024 1:47 PM Discharge Plan Visit Data Chief Complaint: Cardiac Assessment Stated Complaint: LT SIDE/LEG WEAKNESS, DIZZY, RT CHEST PAIN ED Provider: Maxx Ma Discharge Problem: Weakness of left lower extremity, Chest pain, Left groin pain Patient Disposition: Admitted As Inpatient Condition: Fair Discharge Instructions Interventions: ED Discharge Assessment Last Done: 07/17/24 18:18 Forms Stand Alone Forms: [employer] Prescriptions Prescriptions: No Action hydrochlorothiazide 12.5 mg tablet 12.5 mg PO QAM Qty: 90 1RF Patient Comments: RECENTLY HASN'T BEEN USING MUCH (DME) BiPap Machine Misc See Rx Instructions .Robosoft TechnologiesPPLY Qty: 1 0RF Rx Instructions: BIPAP / with a back up rate of 10 breaths/minute with heated humidification, tubing, and supplies. KAM: 99+ years. cetirizine 10 mg tablet 10 mg PO DAILY PRN (Reason: allergy symptoms) Qty: 30 5RF tamsulosin 0.4 mg capsule 0.4 mg PO DAILY Qty: 90 3RF albuterol sulfate [Ventolin HFA] 90 mcg/actuation HFA aerosol inhaler 2 puff inhalation Q6H PRN (Reason: shortness of breath or wheezing) Qty: 8.5 5RF clotrimazole 1 % cream 1 applic topical DIRECTED PRN (Reason: NEEDED ONLY) topiramate 25 mg tablet 25 mg PO DAILY Qty: 90 1RF metformin 500 mg tablet extended release 24 hr 500 mg PO BID Qty: 180 1RF rosuvastatin 20 mg tablet 20 mg PO HS Qty: 90 3RF mecobalamin (vitamin B12) 1,000 mcg lozenge 1,000 mcg PO DAILY Qty: 30 0RF Rx Instructions: allow to dissolve in mouth OR may chew lightly before swallowing Lipo-Flavonoid 500 mg Tablet 1 tab PO .1-2 X DAILY fluticasone propionate 50 mcg/actuation spray,suspension 2 spray intranasal DAILY PRN (Reason: Nasal Congestion) Rx Instructions: administer into each nostril Zepbound 2.5 mg/0.5 mL pen injector 2.5 mg subcut WK Rx Instructions: FRIDAYS Referrals Referrals: Chirag Saleh MD [Primary Care Provider] -
[2024-07-17] MEDS: OPTIRAY 320 125ml IV ONE (13:19)
--- NOTE | 2024-07-17 13:47 | CT Scan Report ---
CT SCAN OF THE ABDOMEN AND PELVIS WITH IV CONTRAST CLINICAL HISTORY: Abdominal pain. COMPARISON STUDY: CT of the abdomen and pelvis June 10, 2011. PET/CT November 13, 2015. TECHNIQUE: Following the IV administration of 112 cc of Optiray 320, CT scan of the abdomen and pelv is is performed from the lung bases to the proximal femora. Images are reviewed in the axial, sagitta l, and coronal planes. IV contrast was administered without complication. A dose lowering technique w as utilized adhering to the principles of ALARA. CT DOSE: 2916.75 mGy.cm FINDINGS: Visualized lung bases are unremarkable. The heart is mildly enlarged. There is no pneumatos is, free air or portal venous gas. Inferior right hepatic lobe enhancing lesions have decreased in si ze since prior exam. These favor hemangiomas. A few additional smaller hepatic lesions are similar to prior exam. Spleen, adrenal glands and pancreas are unremarkable. There is no biliary or pancreatic ductal dilatation. There is no hydronephrosis. Intermediate attenuation left renal lesion is similar to prior PET/CT. This favors a proteinaceous cyst. 3.1 cm infrarenal abdominal aortic aneurysm is pre sent. Caliber and wall thickness of small and large bowel are normal. There is no evidence for a igor l obstruction. Prostate is enlarged, measuring 6.4 cm in transverse diameter. There are no urinary ca lculi. No acute fractures are identified within the visualized skeletal structures. IMPRESSION: 1. No acute process within the abdomen or pelvis. 2. No bowel obstruction. No bowel wall thickening. 3. Enlarged prostate. No hydronephrosis. No urinary calculi. 4. 3.1 cm infrarenal abdominal aortic aneurysm. ACT 112: Negative or not required by law. Electronically signed by: Miles Diehl M.D. 07/17/2024 1:45 PM
--- NOTE | 2024-07-17 13:48 | CT Scan Report ---
CT angio neck with con CLINICAL HISTORY: neuro deficit, acute stroke suspected. COMPARISON STUDY: Head CT earlier today TECHNIQUE: Following the IV administration of 112 of Optiray, CT angiogram of the neck was performed from the aortic arch to the skull base. Images are reviewed in the axial, sagittal, and coronal plane s. 3-D MIPS images are created and assessed. IV contrast was administered without complication. All m easurements were calculated based on NASCET criteria. A dose lowering technique was utilized adherin g to the principles of ALARA. FINDINGS: [place] and motion artifact obscures the proximal left common carotid artery. The right verte bral artery is dominant and the left vertebral artery is diminutive beyond PICA, anatomic variant. Th ere are mild carotid bulb calcifications. No significant narrowing or occlusion seen at the common or internal carotid or the vertebral arteries bilaterally. There is diffuse degenerative disc disease a t the cervical spine. IMPRESSION: No significant arterial narrowing seen at the neck. ACT 112: Negative or not required by law. The above report was generated using voice recognition software. It may contain grammatical, syntax o r spelling errors. Electronically signed by: Thierno Lyons M.D. 07/17/2024 1:47 PM
--- NOTE | 2024-07-17 13:51 | CT Scan Report ---
CT angio head w con, CT head/brain wo con CLINICAL HISTORY: 79 years-old Male with neuro deficit, acute stroke suspected. Acute stroke like symptoms COMPARISON STUDY: CTA neck of same day, head CT 03/08/2017. TECHNIQUE: Unenhanced axial CT scan of the brain is performed. Subsequently, following the IV adminis tration of 112 cc of Optiray, CT angiogram of the brain was performed from the skull base to the vert ex. Images are reviewed in the axial, sagittal, and coronal planes. 3-D MIPS images are created and a ssessed. IV contrast was administered without complication. All measurements were obtained according to NASCET criteria. A dose lowering technique was utilized adhering to the principles of ALARA. FINDINGS: CT BRAIN: There is no acute intracranial hemorrhage, midline shift, hydrocephalus, intracranial mass, territori al ischemia or abnormal extra-axial collections. No abnormal intra-axial or extra-axial enhancement. Involutional changes with white matter hypodensities suggestive of chronic microvascular ischemic di sease, progressed from prior. Chronic appearing left basal ganglia lacunar infarcts. Study is mildly motion degraded. Mastoid air cells and middle ear cavities are clear. No calvarial fracture. Paranasa l sinuses are clear. Right forehead contusion versus scarring. CT ANGIOGRAM OF THE BRAIN: The imaged bilateral internal carotid arteries are patent. The bilateral anterior and middle cerebral arteries are also patent. The vertebrobasilar system and posterior cerebral arteries are patent. The re is mild multifocal stenoses of the posterior cerebral arteries. There is no aneurysm, high-grade s tenosis, or proximal branch occlusion identified. Dural sinuses appear patent. IMPRESSION: 1. No acute intracranial abnormality or calvarial fracture. 2. Unremarkable CTA of the head. ACT 112: Negative or not required by law. The above report was generated using voice recognition software. It may contain grammatical, syntax o r spelling errors. Electronically signed by: Toribio Piedra M.D. 07/17/2024 1:50 PM
[2024-07-17] MEDS: KETOROLAC TROMETHAMINE 15 MG/ML VIAL IV ONE (14:12)
[2024-07-17 14:42] LABS: Appearance Urine Clear (Clear); Bilirubin Urine Negative (Negative); Blood Urine Negative (Negative); Color Urine Yellow; Glucose Urine UA Negative (Negative); Ketones Urine Negative (Negative); Leukocyte Esterase Urine Negative (Negative); Nitrite Urine Negative (Negative); Protein Urine Negative (Negative); Urobilinogen Urine Negative (Negative)
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
--- NOTE | 2024-07-17 15:47 | Electrocardiogram Report ---
Test Reason : Blood Pressure : */* mmHG Vent. Rate : 72 BPM Atrial Rate : 72 BPM P-R Int : 162 ms QRS Dur : 86 ms QT Int : 386 ms P-R-T Axes : 2 -14 8 degrees QTcB Int : 422 ms Normal sinus rhythm Inferior infarct , age undetermined Abnormal ECG Confirmed by Yo Cherry ([id number]) on 07/17/2024 3:47:23 PM Referred By: REFERRED SELF Confirmed By: Yo Cherry
--- NOTE | 2024-07-17 18:57 | XRay Report ---
EXAM: XR orbits for MRI CLINICAL HISTORY: Screening for foreign body for MRI TECHNIQUE: X-ray examination of the orbits performed in PA and lateral views. COMPARISON: None. FINDINGS: Orbital Margins The bony orbital margins appear intact bilaterally, with no evidence of fractures, deformities, or lytic lesions. The zygomatic arches are symmetrical and show no abnormalities. Soft Tissues The periorbital soft tissues are unremarkable, with no evidence of swelling, mass effect, or foreign bodies. The extraocular muscles are not directly visualized on X-ray, but there are no signs of displacement or other indirect abnormalities. Foreign Bodies No radiopaque foreign bodies are identified within the orbits or surrounding regions. IMPRESSION: 1. No radiographic foreign body is seen. 2. MRI is safe as per the image. Electronically signed by Bandar Rick 07-17-2024 6:56 PM
[2024-07-17] MEDS ORDERED: ACETAMINOPHEN 325 MG TAB PO PRN (18:58)
[2024-07-17] MEDS ORDERED: CETIRIZINE HCL 10 MG TABLET PO PRN (18:58)
[2024-07-17] MEDS ORDERED: MoRPHine SULFATE 2 MG/ML CARP IV PRN (18:58)
[2024-07-17] MEDS ORDERED: MAGNESIUM HYDROXIDE SUSP 30 ML UDC PO PRN (18:58)
[2024-07-17] MEDS ORDERED: POLYETHYLENE (MIRALAX) 17 GM PACK PO PRN (18:58)
[2024-07-17] MEDS ORDERED: ALBUTEROL HFA 8 GM INHALER INH PRN (18:58)
[2024-07-17] MEDS ORDERED: FLUTICASONE PROPIONATE NA SPR 16 GM BTL NAE PRN (18:58)
[2024-07-17] MEDS ORDERED: PHARMACIST DISCHARGE MED REC CONSULT PRN (18:58)
[2024-07-17] MEDS ORDERED: ONDANSETRON INJ 2 MG/ML 2 ML VIAL IV PRN (18:58)
[2024-07-17] MEDS: ASPIRIN 81 MG ECTAB PO SCH (21:01)
[2024-07-17] MEDS: ROSUVASTATIN CALCIUM 20 MG TAB PO SCH (21:01)
--- NOTE | 2024-07-17 22:39 | Magnetic Resonance Report ---
Exam(s): MRI HEAD Without Contrast EXAM: MR Head Without Intravenous Contrast CLINICAL HISTORY: LLE weakness, r/o CVA. TECHNIQUE: Magnetic resonance images of the head/brain without intravenous contrast in multiple planes. COMPARISON: CT head without contrast performed at 1315 hrs. FINDINGS: Brain: Abnormal T2 signal in the deep cerebral white matter is consistent with small vessel ischemic/degenerative changes. The cerebral and cerebellar sulci are prominent consistent with brain atrophy. Diffusion-weighted imaging is negative for acute or subacute infarct. Incidental subcentimeter lacunar changes noted in the left basal ganglia. No hemorrhage. Ventricles: Unremarkable. No ventriculomegaly. Bones/joints: Unremarkable. No acute fracture. Sinuses: Unremarkable as visualized. No acute sinusitis. Mastoid air cells: Unremarkable as visualized. No mastoid effusion. Orbits: Unremarkable as visualized. IMPRESSION: 1. No evidence of acute or subacute infarct. 2. Incidental chronic small vessel ischemic/degenerative changes. Electronically signed by: Donaldo Georges MD 07/17/24 22:38 PM
--- NOTE | 2024-07-17 23:25 | Magnetic Resonance Report ---
Exam(s): MRI LEFT HIP Without Contrast EXAM: MR Left Lower Extremity Without Intravenous Contrast, Hip CLINICAL HISTORY: Reason for exam: left groin pain. TECHNIQUE: Coronal magnetic resonance images of the left hip without intravenous contrast. COMPARISON: No relevant prior studies available. FINDINGS: Due to patient discomfort, limited examination performed. Coronal T1 and coronal T2-weighted sequences of the pelvis are obtained. T2 weighted imaging is limited by absence of fat saturation. There is disc and facet degeneration in the lumbar spine. Sacroiliac joints, hip joints, and pubic symphysis are normally aligned. There is no acute fracture or dislocation. There is no AVN of the femoral heads. There are small bilateral hip joint effusions without evidence of septic arthritis or osteomyelitis. There is mild osteoarthritis of both hips with bilateral labral degeneration and degenerative tearing of the right anterosuperior labrum. There are no periarticular burrrsal fluid collections. There is tendinopathy of the bilateral common hamstrings origins without evidence of significant tear. Iliopsoas, rectus femoris, gluteal, and adductor tendons appear intact. There is edema along the superior margin of the vastus lateralis muscle (series 4, image 17). IMPRESSION: 1. Limited exam. Only coronal imaging performed. No fat saturation of the fluid sensitive sequence. 2. Edema noted along the superior margin of left vastus lateralis muscle, incompletely characterized. Muscle injury or contusion is possibility. Consider repeat MRI as clinically indicated. 3. No fractures. 4. Degenerative changes at both hips. Electronically signed by: Migdalia Kumar M.D. 07/17/24 23:24 PM
[2024-07-18 07:09] LABS: Basophils # (auto) 0.05 K/uL (0.00-0.20); Eosinophils # (auto) 0.09 K/uL (0.00-0.50); Eosinophils % (auto) 1.8 %; Hemoglobin 15.5 g/dl (14.0-18.0); Immature Granulocytes # (auto) 0.01 K/uL (0.01-0.20); Immature Granulocytes % (auto) 0.2 %; Lymphocytes # (auto) 1.47 K/uL (1.20-3.40); Lymphocytes % (auto) 29.3 %; Mean Corpuscular Hgb Conc 35.2 g/dL (32.0-36.0); Mean Platelet Volume 10.6 fL (9.4-12.4); Monocytes # (auto) 0.55 K/uL (0.11-0.59); Neutrophils # (auto) 2.85 K/uL (1.40-6.50); Neutrophils % (auto) 56.7 %; Platelet Count 171 K/uL (130-400); RDW Coefficient of Variation 12.9 % (11.5-14.5); RDW Standard Deviation 41.4 fL (36.4-46.3); White Blood Count 5.02 K/ul (4.8-10.8)
[2024-07-18 07:29] LABS: Estimated Average Glucose 111 mg/dl; Hemoglobin A1C 5.5 % (4.5-5.6)
[2024-07-18 07:30] LABS: BUN Creatinine Ratio 12.9 (10-20); Calcium 8.8 mg/dl (8.6-10.3); Chol HDL Ratio 2.8 (0-5); Creatinine Clr Calc Pharmacy 64.4 ml/min
[2024-07-18] MEDS: CYANOCOBALAMIN (B-12) 500 MCG TABLET PO SCH (07:56)
[2024-07-18] MEDS: hydroCHLOROthiazide 25 MG TAB PO SCH (07:56)
[2024-07-18] MEDS: TAMSULOSIN HCL 0.4 MG CAP PO SCH (07:56)
[2024-07-18] MEDS: ENOXAPARIN INJ 40 MG/0.4 ML SYR SQ SCH (07:56)
[2024-07-18] MEDS: TOPIRAMATE 25 MG TAB PO SCH (07:57)
--- NOTE | 2024-07-18 09:16 | XCELERA ---
[id number]
[2024-07-18 11:36] VITALS: BP 106/74; RESP 20; TEMP 98.3; O2SAT 96
[2024-07-18] MEDS: KETOROLAC TROMETHAMINE 15 MG/ML VIAL IV PRN (11:47)
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
[2024-07-18 15:34] VITALS: PULSE 60
== END 2024-07-18 16:24 | disposition home or self-care (01) ==
LOC: SUATTDRO → 2W 11:46 → ED 11:46 → 2W 18:18